=== PATIENT | male | born 1995 | race Two or more races ===

== ENCOUNTER 2018-09-04 13:27 | Emergency (ER) | payer SELFPAY ==
[~2018-09-04] VITALS: Ht 175.3 cm; Wt 104.0 kg
[2018-09-04 16:43] VITALS: BP 136/82
== END 2018-09-04 16:43 | disposition home or self-care (01) ==
LOC: ER 14:20
DX: S01.81XA Laceration without foreign body of other part of head, initial encounter (principal); W22.8XXA Striking against or struck by other objects, initial encounter; Y93.89 Activity, other specified; Y92.89 Other specified places as the place of occurrence of the external cause; Y99.8 Other external cause status
CPT/HCPCS: 12011; 99283